=== PATIENT | female | born 1985 ===

== ENCOUNTER 2023-06-27 19:42 | Outpatient (REF) | payer MEDICAID, SELFPAY ==
[2023-06-27 20:01] LABS: HCT 37.9 % (36.0-46.0); HGB 12.5 g/dL (11.2-15.7); MCH 28.2 pg (27.0-33.0); MCV 86 fL (80-95); MPV 9.9 fL (8.0-11.0); Platelet Count 357 10^3/uL (130-400); RBC 4.43 10^6/uL (3.93-5.22); RDW 12.7 % (11.7-14.6); RDW-SD 39.4 fL; WBC 12.47 10^3/uL (4.4-10.8)
[2023-06-27 20:34] LABS: ALT 22 U/L (14-59); AST 11 U/L (15-37); Albumin 3.8 g/dL (3.4-5.0); Alkaline Phosphatase 83 U/L (46-116); Anion Gap 10.2 mmol/L (3-11); BUN 15 mg/dL (7-18); Bilirubin, Total 0.6 mg/dL (0.2-1.0); CO2 27.8 mmol/L (21.0-32.0); CREATININE 0.8 mg/dL (0.55-1.02); Calcium 9.5 mg/dL (8.5-10.1); Chloride 104 mmol/L (98-107); Estimated GFR 98.48 (mL/min/1.73m2); Glucose 108 mg/dL (74-106); Microalb ug/mg Crea 24.4 ug/mg Cr; Potassium 3.9 mmol/L (3.5-5.1); Sodium 142 mmol/L (136-145); Total Protein 7.6 g/dL (6.4-8.2); Vitamin B12 617 pg/mL (193-986)
[2023-06-27 20:39] LABS: Vitamin D 25 Total 33.6 ng/mL (30-100)
== END 2023-06-27 19:43 | disposition home or self-care (01) ==
LOC: NCHCN 19:42
PROVIDERS: Visit Provider Student in an Organized Health Care Education/Training Program
DX: E11.9 Type 2 diabetes mellitus without complications (principal); E55.9 Vitamin D deficiency, unspecified; I10 Essential (primary) hypertension; K21.9 Gastro-esophageal reflux disease without esophagitis
CPT/HCPCS: 80053; 82306; 85027; 82043; 82570; 82607

== ENCOUNTER 2024-04-28 13:34 | Outpatient (REF) | payer MEDICAID, SELFPAY ==
[2024-04-28 15:17] LABS: HCT 38.6 % (36.0-46.0); HGB 12.6 g/dL (11.2-15.7); MCH 28.7 pg (27.0-33.0); MCHC 32.6 % (32.0-36.0); MCV 88 fL (80-95); MPV 9.5 fL (8.0-11.0); Platelet Count 333 10^3/uL (130-400); RBC 4.39 10^6/uL (3.93-5.22); RDW 12.5 % (11.7-14.6); RDW-SD 40.4 fL; WBC 9.86 10^3/uL (4.4-10.8)
[2024-04-28 15:46] LABS: Calculated LDL 110 mg/dL (<100); Cholesterol 206 mg/dL (<200); Ferritin 104 ng/mL (8-252); HDL Cholesterol 45 mg/dL (>or=50); Magnesium 2.2 mg/dL (1.8-2.4); Triglyceride 257 mg/dL (<150)
[2024-04-28 15:57] LABS: Iron 56 ug/dL (50-170); Total Iron Binding Capacity 302 ug/dL (250-450); Transferrin Sat 19 % (15-50)
[2024-04-28 16:08] LABS: Microalb ug/mg Crea 52.1 ug/mg Cr
== END 2024-04-28 13:35 | disposition home or self-care (01) ==
LOC: NCHCN 13:34
PROVIDERS: Visit Provider Student in an Organized Health Care Education/Training Program
DX: E11.9 Type 2 diabetes mellitus without complications (principal); G25.81 Restless legs syndrome; Z13.220 Encounter for screening for lipoid disorders
CPT/HCPCS: 80061; 85027; 82043; 82570; 82728; 83540; 83550; 83735